=== PATIENT | female | born 1955 | race Caucasian/White ===

== ENCOUNTER 2018-10-28 08:27 | Day surgery (SDC) | payer MEDICARE, OTHER ==
[~2018-10-28] VITALS: Ht 149.9 cm; Wt 48.3 kg
[~2018-10-28 08:27] MED LIST: CALCIUM; CONEST.625 TOP; HERBAL THYROID
[2018-10-28] MEDS ORDERED: AMOX250 PO (08:57)
[2018-10-28] MEDS ORDERED: CHOL10002 PO (08:57)
--- NOTE | 2018-10-28 09:03 | NUR ---
10/28/18 0903 Milady Mccoy V PT RESTING IN BED, SIDE RAILS IN PLACE, CALL LIGHT WITHIN REACH, VSS. PT DENIES PAIN AND DISCOMFORT AT THIS TIME.
== END 2018-10-28 10:38 | disposition home or self-care (01) ==
LOC: ORSCSDS 08:27
PROVIDERS: Surgery
PROC: 0DJD8ZZ Inspection of Lower Intestinal Tract, Via Natural or Artificial Opening Endoscopic (ICD-10-PCS; principal; 2018-10-28 09:45)
DX: Z12.11 Encounter for screening for malignant neoplasm of colon (principal); F41.8 Other specified anxiety disorders; Z79.899 Other long term (current) drug therapy
CPT/HCPCS: J7120

== ENCOUNTER → 2023-11-09 | Outpatient (CLI) | payer MEDICARE, OTHER ==
[~2023-11-09] MED LIST changes: +AMOX250 PO; +CHOL10002 PO
== END ==
LOC: LAB 17:19 → LAB SHORT 17:19
DX: R30.0 Dysuria (principal)
CPT/HCPCS: 87077; 87086; 87186